=== PATIENT | female | born 1955 | race Hispanic/Latino ===

== ENCOUNTER 2017-12-01 05:07 | Inpatient (IN) | payer MEDICARE ==
[~2017-12-01] VITALS: Ht 152.4 cm; Wt 42.5 kg
[2017-12-01] MEDS ORDERED: MORPHINE SULFATE 4 MG/1ML SYG ONE (05:29)
[2017-12-01] MEDS ORDERED: ONDANSETRON HCL MDV 20ML 2 MG/ML VIAL ONE (05:29)
[2017-12-01 07:12] LABS: BASOPHILS % (AUTO) 0.9 % (0.0-5.0); EOSINOPHILS % (AUTO) 2.5 % (0.0-8.0); HEMATOCRIT 28.5 % (36-48); LYMPHOCYTES % (AUTO) 12.6 % (21.0-51.0); MEAN CORPUSCULAR HEMOGLOBIN 30.6 pg (27.0-33.0); MEAN CORPUSCULAR HGB CONC 33.1 g/dL (32.0-36.0); MEAN CORPUSCULAR VOLUME 92.4 fL (79-99); MONOCYTES % (AUTO) 10.5 % (3.0-13.0); NEUTROPHILS % (AUTO) 73.5 % (40.0-77.0); PLATELET COUNT (AUTO) 220 K/uL (130-400); RED BLOOD CELL COUNT(AUTO) 3.08 MIL/uL (4.00-5.50); RED CELL DISTRIBUTION WIDTH 15.7 % (11.0-15.5); WHITE BLOOD COUNT (AUTO) 5.3 K/uL (4.8-10.8)
[2017-12-01 07:20] LABS: CARBON DIOXIDE 29 mmol/L (21-32); CHLORIDE 99 mmol/L (101-111); CREATININE 3.4 mg/dL (0.5-1.5); GLOMERULAR FILTR. RATE CALC 14 mL/min (>60); GLUCOSE,RANDOM 149 mg/dL (70-105); POTASSIUM 3.9 mmol/L (3.5-5.1); SODIUM SERUM 137 mmol/L (136-145); UREA NITROGEN, BLOOD 15 mg/dL (7-18)
[2017-12-01 07:26] LABS: ALBUMIN 3.4 g/dL (3.5-5.0); ASPARTATE AMINOTRANSFERASE 31 U/L (10-37); BILIRUBIN,DIRECT 0.2 mg/dL (0.0-0.3); BILIRUBIN,TOTAL 1.1 mg/dL (0.2-1.0); LIPASE 207 U/L (114-286); TOTAL PROTEIN, SERUM 7.2 g/dL (6.0-8.3)
[2017-12-01 07:36] LABS: ALANINE AMINOTRANSFERASE < 6 U/L (12-78)
[2017-12-01 11:48] VITALS: BP 163/86
[2017-12-01 12:25] VITALS: BP 163/86
[2017-12-01] MEDS ORDERED: WARF-57 PO (16:55)
[2017-12-01] MEDS ORDERED: SEVE800T7 PO (16:55)
[2017-12-01] MEDS ORDERED: METO-391 PO (16:55)
[2017-12-01] MEDS ORDERED: PANT40TA25 PO (16:55)
[2017-12-01] MEDS ORDERED: MEMA5TAB15 PO (16:55)
[2017-12-01] MEDS ORDERED: DILT120T PO (16:55)
[2017-12-01] MEDS ORDERED: SODI650T PO (16:55)
[2017-12-01] MEDS ORDERED: CLIN300C9 PO (16:55)
[2017-12-01 17:32] LABS: INR 1.25 (0.85-1.15); PARTIAL THROMBOPLASTIN TIME 33.6 SEC (26.3-35.5); PROTHROMBIN TIME 13.1 SEC (9.6-11.6)
[2017-12-01] MEDS ORDERED: HYDRALAZINE HCL 20 MG/ML VIAL IV PRN (18:15)
[2017-12-01] MEDS ORDERED: ACETAMINOPHEN 325 MG TAB PO PRN (18:15)
[2017-12-01 20:00] VITALS: BP 155/86
[2017-12-01] MEDS ORDERED: MORPHINE SULFATE 4 MG/1ML SYG IVP PRN (21:45)
[2017-12-01] MEDS ORDERED: SODIUM CHLORIDE 0.9% 10 ML VIAL IVP PRN (21:45)
[2017-12-01] MEDS ORDERED: ONDANSETRON HCL MDV 20ML 2 MG/ML VIAL IVP PRN (21:45)
[2017-12-01 23:49] VITALS: BP 146/90
[2017-12-02 04:00] VITALS: BP 122/85
[2017-12-02 06:01] LABS: BASOPHILS % (AUTO) 1.3 % (0.0-5.0); EOSINOPHILS % (AUTO) 6.3 % (0.0-8.0); HEMATOCRIT 29.1 % (36-48); LYMPHOCYTES % (AUTO) 14.8 % (21.0-51.0); MEAN CORPUSCULAR HEMOGLOBIN 32.5 pg (27.0-33.0); MEAN CORPUSCULAR HGB CONC 35.3 g/dL (32.0-36.0); MEAN CORPUSCULAR VOLUME 92.1 fL (79-99); NEUTROPHILS % (AUTO) 68.6 % (40.0-77.0); PLATELET COUNT (AUTO) 213 K/uL (130-400); RED BLOOD CELL COUNT(AUTO) 3.16 MIL/uL (4.00-5.50); RED CELL DISTRIBUTION WIDTH 15.8 % (11.0-15.5); WHITE BLOOD COUNT (AUTO) 5.5 K/uL (4.8-10.8)
[2017-12-02 06:20] LABS: BILIRUBIN,TOTAL 1.1 mg/dL (0.2-1.0); CREATININE 4.4 mg/dL (0.5-1.5); POTASSIUM 4.8 mmol/L (3.5-5.1)
[2017-12-02 08:00] VITALS: BP 147/83
[2017-12-02] MEDS ORDERED: FAMOTIDINE 20MG TAB 20 MG TAB PO SCH (09:00)
[2017-12-02] MEDS: FAMOTIDINE 20MG TAB 20 MG TAB PO SCH (09:41)
[2017-12-02 12:00] VITALS: BP 136/85
[2017-12-02] MEDS ORDERED: DILTIAZEM HCL 5 MG/ML 10 ML VIAL IV SCH (14:30)
[2017-12-02] MEDS: CLINDAMYCIN HCL 150 MG CAP PO SCH ×2 (14:46→22:23)
[2017-12-02] MEDS: SODIUM BICARBONATE 650 MG TAB PO SCH ×2 (14:46→22:27)
[2017-12-02] MEDS: LACTULOSE 20 GM/30 ML UDCUP PO PRN (15:17)
[2017-12-02 16:00] VITALS: BP 156/111
[2017-12-02] MEDS: SEVELAMER HCL 800 MG TABLET PO SCH (17:39)
[2017-12-02 19:55] VITALS: BP 143/92
[2017-12-02] MEDS: METOPROLOL TARTRATE 25 MG TAB PO SCH (22:23)
[2017-12-02] MEDS: MEMANTINE HCL 5 MG TABLET PO SCH (22:23)
[2017-12-02 23:53] VITALS: BP 146/67
[2017-12-03 03:58] VITALS: BP 135/75
[2017-12-03 05:52] LABS: BASOPHILS % (AUTO) 1.3 % (0.0-5.0); HEMATOCRIT 27.9 % (36-48); LYMPHOCYTES % (AUTO) 16.7 % (21.0-51.0); MEAN CORPUSCULAR HEMOGLOBIN 30.7 pg (27.0-33.0); MEAN CORPUSCULAR HGB CONC 33.2 g/dL (32.0-36.0); MEAN CORPUSCULAR VOLUME 92.4 fL (79-99); MONOCYTES % (AUTO) 11.5 % (3.0-13.0); NEUTROPHILS % (AUTO) 64.5 % (40.0-77.0); PLATELET COUNT (AUTO) 209 K/uL (130-400); RED BLOOD CELL COUNT(AUTO) 3.02 MIL/uL (4.00-5.50); RED CELL DISTRIBUTION WIDTH 15.7 % (11.0-15.5); WHITE BLOOD COUNT (AUTO) 5.2 K/uL (4.8-10.8)
[2017-12-03 06:06] LABS: CREATININE 5.6 mg/dL (0.5-1.5); POTASSIUM 4.7 mmol/L (3.5-5.1)
[2017-12-03] MEDS: SODIUM BICARBONATE 650 MG TAB PO SCH ×3 (06:33→20:48)
[2017-12-03] MEDS ORDERED: BISACODYL 10 MG SUPP.RECT RC PRN (07:45)
[2017-12-03 08:24] VITALS: BP 144/75
[2017-12-03] MEDS: FAMOTIDINE 20MG TAB 20 MG TAB PO SCH (09:56)
[2017-12-03] MEDS: PANTOPRAZOLE SODIUM 40 MG TABLET.DR PO SCH (09:56)
[2017-12-03] MEDS: CLINDAMYCIN HCL 150 MG CAP PO SCH ×2 (09:56→20:46)
[2017-12-03] MEDS: METOPROLOL TARTRATE 25 MG TAB PO SCH ×2 (09:56→20:47)
[2017-12-03] MEDS: DILTIAZEM HCL 120 MG CAP.SR.24H PO SCH (09:56)
[2017-12-03] MEDS: SEVELAMER HCL 800 MG TABLET PO SCH ×3 (10:02→20:48)
[2017-12-03 12:15] VITALS: BP 142/71
[2017-12-03 16:00] VITALS: BP 131/53
[2017-12-03] MEDS ORDERED: WARFARIN SODIUM 5 MG TAB PO SCH (16:00)
[2017-12-03 20:00] VITALS: BP 130/72
[2017-12-03] MEDS: LACTULOSE 20 GM/30 ML UDCUP PO PRN (20:47)
[2017-12-03] MEDS: MEMANTINE HCL 5 MG TABLET PO SCH (20:47)
[2017-12-04] VITALS: BP 148/67
[2017-12-04] MEDS: SODIUM BICARBONATE 650 MG TAB PO SCH (03:14)
[2017-12-04 04:00] VITALS: BP 131/61
[2017-12-04 05:48] LABS: HEMATOCRIT 26.5 % (36-48); MEAN CORPUSCULAR HEMOGLOBIN 31.6 pg (27.0-33.0); MEAN CORPUSCULAR HGB CONC 34.5 g/dL (32.0-36.0); MEAN CORPUSCULAR VOLUME 91.4 fL (79-99); PLATELET COUNT (AUTO) 190 K/uL (130-400); RED CELL DISTRIBUTION WIDTH 15.5 % (11.0-15.5); WHITE BLOOD COUNT (AUTO) 4.7 K/uL (4.8-10.8)
[2017-12-04 06:00] LABS: ALBUMIN 2.6 g/dL (3.5-5.0); BILIRUBIN,TOTAL 0.9 mg/dL (0.2-1.0); CREATININE 3.7 mg/dL (0.5-1.5); POTASSIUM 3.7 mmol/L (3.5-5.1); TOTAL PROTEIN, SERUM 6.5 g/dL (6.0-8.3)
[2017-12-04] MEDS ORDERED: POLY17PO4 PO (07:19)
[2017-12-04] MEDS: DILTIAZEM HCL 120 MG CAP.SR.24H PO SCH (08:32)
[2017-12-04] MEDS: SEVELAMER HCL 800 MG TABLET PO SCH (08:32)
[2017-12-04] MEDS: CLINDAMYCIN HCL 150 MG CAP PO SCH (08:33)
[2017-12-04] MEDS: FAMOTIDINE 20MG TAB 20 MG TAB PO SCH (08:33)
[2017-12-04] MEDS: METOPROLOL TARTRATE 25 MG TAB PO SCH (08:33)
[2017-12-04] MEDS: PANTOPRAZOLE SODIUM 40 MG TABLET.DR PO SCH (08:33)
[2017-12-04 09:56] VITALS: BP 119/60
== END 2017-12-04 11:40 | disposition home or self-care (01) | DRG 604 ==
LOC: EDH 05:07 → OBSVTOIN 09:45 → EDHIP 09:45 → 3BH 11:38
PROVIDERS: ADMIT Internal Medicine Nephrology; ATTEND Internal Medicine Nephrology
PROC: 5A1D70Z Performance of Urinary Filtration, Intermittent, Less than 6 Hours Per Day (ICD-10-PCS; principal; 2017-12-03)
DX: S30.1XXA Contusion of abdominal wall, initial encounter (principal); N18.6 End stage renal disease; E11.22 Type 2 diabetes mellitus with diabetic chronic kidney disease; I12.0 Hypertensive chronic kidney disease with stage 5 chronic kidney disease or end stage renal disease; R18.8 Other ascites; I48.91 Unspecified atrial fibrillation; Z99.2 Dependence on renal dialysis; K74.60 Unspecified cirrhosis of liver; F03.90 Unspecified dementia, unspecified severity, without behavioral disturbance, psychotic disturbance, mood disturbance, and anxiety; G89.29 Other chronic pain; K59.00 Constipation, unspecified; X58.XXXA Exposure to other specified factors, initial encounter; Z88.0 Allergy status to penicillin; Z86.73 Personal history of transient ischemic attack (TIA), and cerebral infarction without residual deficits; Y93.89 Activity, other specified; Y92.89 Other specified places as the place of occurrence of the external cause; Y99.8 Other external cause status
CPT/HCPCS: 36415; 74176; 80048; 80053; 80076; 83690; 84484; 85025; 85027; 85610; 85730; 90935; 93005; J2270